=== PATIENT | male | born 1980 | race Caucasian/White ===

== ENCOUNTER → 2017-01-25 | Outpatient (CLI) | payer OTHER ==
--- NOTE | 2017-01-25 12:58 | RAD ---
MR of the pelvis, 01/25/2017: History: Pelvic pain Imaging was performed in axial, coronal and sagittal planes utilizing T1 and fat-suppressed T2-weighted sequences. No pelvic mass or unusual fluid collection is seen. No adenopathy is seen. The bladder is unremarkable. No inflammatory process is evident. No bony abnormality is detected. There appears to be a small right hydrocele, incompletely visualized on these scans. IMPRESSION: No significant pelvic abnormality is detected.
== END | disposition home or self-care (01) ==
LOC: MRI 09:47
PROVIDERS: ATTEND Surgery
DX: R10.2 Pelvic and perineal pain (principal)
CPT/HCPCS: 72195